=== PATIENT | female | born 1975 | race Caucasian/White ===

== ENCOUNTER 2018-08-22 12:11 | Emergency (ER) | payer OTHER, BC ==
[~2018-08-22] VITALS: Ht 157.5 cm; Wt 63.5 kg
[~2018-08-22 12:11] MED LIST: BIRTH CONTROL
[2018-08-23 10:09] LABS: HCV ANTIBODY <0.1 (0.0-0.9); HIV SCREEN 4TH GENERATION WRFX Non Reactive (Non Reactive)
== END 2018-08-22 13:14 | disposition home or self-care (01) ==
LOC: ER 12:11
PROVIDERS: Physician Assistant
DX: Z77.21 Contact with and (suspected) exposure to potentially hazardous body fluids (principal); Z88.2 Allergy status to sulfonamides; Z91.040 Latex allergy status
CPT/HCPCS: 36415; 84460; 86317; 86803; 87389; 99283